=== PATIENT | female | born 2005 | race Hispanic/Latino ===

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

== ENCOUNTER 2024-03-29 19:15 | Emergency (ER) | payer MEDICAID, OTHER ==
[~2024-03-29] VITALS: Ht 157.5 cm; Wt 52.6 kg
[2024-03-29] MEDS ORDERED: ERYT1OIN7 OP (19:41)
[2024-03-29 20:10] VITALS: BP 132/64; PULSE 70; RESP 16; O2SAT 99
== END 2024-03-29 20:28 | disposition home or self-care (01) ==
LOC: EDH 19:15
DX: H10.89 Other conjunctivitis (principal); H10.023 Other mucopurulent conjunctivitis, bilateral